=== PATIENT | male | born 1985 | race Two or more races ===

== ENCOUNTER 2018-04-20 23:03 | Emergency (ER) | payer MEDICAID ==
[~2018-04-20] VITALS: Ht 170.2 cm; Wt 127.5 kg
[2018-04-21 00:45] LABS: Basophils # (auto) 0.5 uL; Basophils % (auto) 3.3 % (0.0-2.0); Eosinophils # (auto) 0 uL; Eosinophils % (auto) 0.3 % (0.0-7.0); Hematocrit 48.2 % (41.0-53.0); Hemoglobin 16.3 g/dL (13.5-17.5); Lymphocytes # (auto) 1.9 uL; Lymphocytes % (auto) 14.1 % (10.0-50.0); Mean Corpuscular Hemoglobin 28.3 pg (28.0-32.0); Mean Corpuscular Hgb Conc. 33.9 g/dL (32.0-36.0); Mean Corpuscular Volume 83.4 fL (80.0-100.0); Monocytes # (auto) 0.6 uL; Monocytes % (auto) 4.1 % (0.0-12.0); Neutrophils # (auto) 10.7 uL; Neutrophils % (auto) 78.2 % (37.0-80.0); Nucleated Red Blood Cells % 0.1 %; Platelet Count (auto) 324 10^3/uL (140-450); Red Blood Cells 5.78 10^6/uL (4.5-5.90); Red Cell Distribution Width 13.2 % (11.8-14.3); White Blood Cell 13.7 10^3/uL (4.4-10.8)
[2018-04-21 00:55] LABS: Albumin 3.9 g/dL (3.4-5.0); BUN/Creatinine Ratio 10.7; Calcium 8.8 mg/dL (8.5-10.1); Magnesium 2.2 mg/dL (1.6-2.6)
[2018-04-21 01:02] LABS: Bilirubin, Total 0.4 mg/dL (0.2-1.0); Total Protein 8.3 g/dL (6.4-8.2)
[2018-04-21 01:04] LABS: Urine Bacteria FEW /hpf (None Seen); Urine Blood 2+ /uL (Negative); Urine Specific Gravity 1.015 (1.001-1.035); Urine WBC <1 /hpf (0 - 3)
[2018-04-21] MEDS ORDERED: KETOROLAC TROMETH 30 MG/ML 1ML VIAL IV ONE (04:00)
[2018-04-21] MEDS ORDERED: SODIUM CHLORIDE 0.9% 1,000 ML IVB ONE (06:27)
[2018-04-21] MEDS ORDERED: TAMSULOSIN HYDROCHLORIDE 0.4 MG CAP PO ONE (06:30)
[2018-04-21 07:51] VITALS: BP 136/97
== END 2018-04-21 08:56 | disposition home or self-care (01) ==
LOC: ER 23:08
DX: N13.2 Hydronephrosis with renal and ureteral calculous obstruction (principal); K75.81 Nonalcoholic steatohepatitis (NASH)
CPT/HCPCS: 36415; 74176; 76870; 80053; 81001; 82150; 83690; 83735; 85025; 96374; 99284; J1885; J7030

== ENCOUNTER 2021-10-25 18:00 | Emergency (ER) | payer MEDICAID ==
[~2021-10-25] VITALS: Ht 170.2 cm; Wt 142.1 kg
[~2021-10-25 18:00] MED LIST: CHOL20007 PO
[2021-10-25] MEDS ORDERED: KETOROLAC TROMETH 60MG/2ML VIAL IM ONE (22:45)
[2021-10-25] MEDS ORDERED: HYDROcodone-ACET 10/325MG TAB PO ONE (22:45)
[2021-10-25 23:05] VITALS: BP 150/97
== END 2021-10-25 23:22 | disposition home or self-care (01) ==
LOC: ER 18:00
DX: R07.81 Pleurodynia (principal); I10 Essential (primary) hypertension; E11.9 Type 2 diabetes mellitus without complications; E78.5 Hyperlipidemia, unspecified; J45.909 Unspecified asthma, uncomplicated; Z79.899 Other long term (current) drug therapy; V43.52XA Car driver injured in collision with other type car in traffic accident, initial encounter; Y93.89 Activity, other specified; Y92.410 Unspecified street and highway as the place of occurrence of the external cause; Y99.8 Other external cause status
CPT/HCPCS: 71045; 96372; 99283; J1885